=== PATIENT | female | born 1950 | race American Indian/Alaskan Native ===

== ENCOUNTER 2018-01-14 20:34 | Emergency (ER) | payer MEDICARE ==
[2018-01-14 22:45] LABS: Basophils # (Auto) 0.1 K/mm3 (0.0-0.1); Basophils % (Auto) 0.8 % (0.0-1.8); Eosinophils # (Auto) 0.2 K/mm3 (0.0-0.4); Eosinophils % (Auto) 2.3 % (0.0-4.3); Hematocrit 29.7 % (30.3-42.9); Hemoglobin 10.3 gm/dl (10.1-14.3); Lymphocytes # (Auto) 2.1 K/mm3 (1.2-5.4); Lymphocytes % (Auto) 23.2 % (13.4-35.0); Mean Corpuscular HGB Conc 35 % (30-34); Mean Corpuscular Hemoglobin 32 pg (28-32); Mean Corpuscular Volume 93 fl (79-97); Monocytes # (Auto) 0.6 K/mm3 (0.0-0.8); Monocytes % (Auto) 7.2 % (0.0-7.3); Platelet Count 489 K/mm3 (140-440); Red Cell Distribution Width 15.7 % (13.2-15.2)
[2018-01-14 22:58] LABS: BUN/Creatinine Ratio 19; Blood Urea Nitrogen 15 mg/dL (7-17); Calcium 9.5 mg/dL (8.4-10.2); Hemolysis Index 9
--- NOTE | 2018-01-15 | XRay Report ---
FINAL REPORT EXAM: XR CHEST ROUTINE 2V HISTORY: Shortness of breath COMPARISON: None available. FINDINGS:: Frontal and lateral views of the chest obtained. Cardiac silhouette is within normal limits patchy airspace consolidation the medial margin right middle lobe compatible with pneumonia. Remaining loops clear. No pleural effusion or pneumothorax. IMPRESSION:: Right middle lobe pneumonia.
[2018-01-15] MEDS ORDERED: DUONEB *Not for PRN Use IH ONE (01:21)
--- NOTE | 2018-01-15 01:52 | Emergency Department Report ---
ED General Adult HPI - General Chief complaint: Dyspnea/Respdistress Stated complaint: SOB Time Seen by Provider: 01/15/18 01:08 Source: patient Mode of arrival: Ambulatory Limitations: No Limitations - History of Present Illness Initial comments: 67-year-old female with a past medical history of COPD, diabetes, hypertension, elevated cholesterol presents to the hospital complains of feeling like her eyes felt tired earlier. Patient denies pain, blurry vision, headache, or shortness of breath. Patient thought that maybe her sugar was high and she began to feel anxious and worried that something was wrong with her. While waiting to the ER for evaluation r her symptoms have resolved and she feels normal. - Related Data Allergies Allergy/AdvReac Type Severity Reaction Status Date / Time acetaminophen AdvReac Itching Verified 01/14/18 21:52 [From [facility]-[place] Plus Flu/Body] aspirin AdvReac Itching Verified 01/14/18 21:52 [From [facility] Plus Cold/Cough] chlorpheniramine AdvReac Itching Verified 01/14/18 21:52 [From [facility] Plus Cold/Cough] dextromethorphan AdvReac Itching Verified 01/14/18 21:52 [From [facility] Plus Cold/Cough] magnesium salicylate AdvReac Itching Verified 01/14/18 21:52 [From Doans Pills] phenylpropanolamine AdvReac Itching Verified 01/14/18 21:52 [From [place] Plus Cold/Cough] pseudoephedrine AdvReac Itching Verified 01/14/18 21:52 [From [facility] Plus Flu/Body] ED Review of Systems ROS: Stated complaint: SOB Other details as noted in HPI Comment: All other systems reviewed and negative ED Past Medical Hx - Past Medical History Hx Hypertension: Yes Hx Diabetes: Yes Hx Arthritis: Yes Hx COPD: Yes Additional medical history: high cholesterol - Surgical History Past Surgical History?: Yes Additional Surgical History: hernia 1974. breast left - Social History Smoking Status: Current Every Day Smoker Substance Use Type: Alcohol ED Physical Exam - General Limitations: No Limitations - Other Other exam information: General: No limitations, patient is alert in no acute distress Head exam: Atraumatic, normocephalic Eyes exam: Normal appearance, pupils equal reactive to light, extraocular movements intact ENT: Moist mucous membrane, normal oropharynx Neck exam: Normal inspection, full range of motion, no meningismus nontender Respiratory exam: Mild bilateral expiratory wheezes Cardiovascular: Normal rate and rhythm, normal heart sounds Abdomen: Soft, nondistended, and nontender, with normal bowel sounds, no rebound, or guarding Extremity: Full range of motion normal inspection no deformity Back: Normal Inspection, full range of motion, no tenderness Neurologic: Alert, oriented x3, cranial nerves intact, no motor or sensory deficit Psychiatric: normal affect, normal mood Skin: Warm, dry, intact ED Course Vital Signs 01/14/18 01/14/18 01/15/18 21:10 21:40 00:30 Temperature 98.2 F 98.2 F Pulse Rate 107 H 107 H 91 H Pulse Rate [ Posterior Bilateral Throughout] Respiratory 14 29 H Rate Respiratory Rate [Posterior Bilateral Throughout] Blood Pressure 134/64 134/64 O2 Sat by Pulse 87 94 97 Oximetry 01/15/18 01/15/18 01:25 01:38 Temperature Pulse Rate Pulse Rate [ 88 96 H Posterior Bilateral Throughout] Respiratory Rate Respiratory 20 20 Rate [Posterior Bilateral Throughout] Blood Pressure O2 Sat by Pulse Oximetry ED Medical Decision Making - Lab Data Result diagrams: 01/14/18 22:29 01/14/18 22:29 Lab Results 01/14/18 01/14/18 Range/Units 22:29 22:29 WBC 9.0 (4.5-11.0) K/mm3 RBC 3.20 L (3.65-5.03) M/mm3 Hgb 10.3 (10.1-14.3) gm/dl Hct 29.7 L (30.3-42.9) % MCV 93 (79-97) fl MCH 32 (28-32) pg MCHC 35 H (30-34) % RDW 15.7 H (13.2-15.2) % Plt Count 489 H (140-440) K/mm3 Lymph % (Auto) 23.2 (13.4-35.0) % [place] % (Auto) 7.2 (0.0-7.3) % Eos % (Auto) 2.3 (0.0-4.3) % Baso % (Auto) 0.8 (0.0-1.8) % Lymph # 2.1 (1.2-5.4) K/mm3 [place] # 0.6 (0.0-0.8) K/mm3 Eos # 0.2 (0.0-0.4) K/mm3 Baso # 0.1 (0.0-0.1) K/mm3 Seg Neutrophils % 66.5 (40.0-70.0) % Seg Neutrophils # 6.0 (1.8-7.7) K/mm3 Sodium 133 L (137-145) mmol/L Potassium 4.3 (3.6-5.0) mmol/L Chloride 94.8 L (98-107) mmol/L Carbon Dioxide 26 (22-30) mmol/L Anion Gap 17 mmol/L BUN 15 (7-17) mg/dL Creatinine 0.8 (0.7-1.2) mg/dL Estimated GFR > 60 ml/min BUN/Creatinine Ratio 19 % Glucose 164 H (65-100) mg/dL Calcium 9.5 (8.4-10.2) mg/dL Troponin T < 0.010 (0.00-0.029) ng/mL - EKG Data -: EKG Interpreted by Me EKG shows normal: sinus rhythm, axis (qrs 79), QRS complexes (qrsd 85), ST-T waves (no stemi/t inv) Rate: tachycardia (103) - Medical Decision Making Eyes have a tired feeling Resolved complaints of visual abnormalities Pain-free Anxiety Resolved COPD Mild wheezing Patient is not use home O2 Received a DuoNeb in the ED with improvement Labs unremarkable. Corrected sodium for glucose is 134-135 Patient will be discharged home with PMD follow-up - Differential Diagnosis hypoglycemia, anxiety, COPD Critical Care Time: No Critical care attestation.: If time is entered above; I have spent that time in minutes in the direct care of this critically ill patient, excluding procedure time. ED Disposition Clinical Impression: Anxiety, Diabetes, COPD (chronic obstructive pulmonary disease) Disposition: DC-01 TO HOME OR SELFCARE Is pt being admited?: No Does the pt Need Aspirin: No Condition: Stable Instructions: Diabetes Mellitus Type 2 in Adults (ED), Chronic Obstructive Pulmonary Disease (ED), Anxiety (ED) Additional Instructions: Continue your current medication as prescribed. Follow up with your doctor or the doctors provided. Return if symptoms worsen as indicated by your discharge instructions Referrals: your primary care, [Other] - 3-5 Days [facility] [Provider Group] - 3-5 Days REX GILES MD [Staff Physician] - 3-5 Days Time of Disposition: 02:21
[2018-01-15 02:38] VITALS: BP 132/70
== END 2018-01-15 02:38 | disposition home or self-care (01) ==
LOC: ED 20:34
DX: E11.65 Type 2 diabetes mellitus with hyperglycemia (principal); J44.9 Chronic obstructive pulmonary disease, unspecified; F41.9 Anxiety disorder, unspecified; I10 Essential (primary) hypertension; M19.90 Unspecified osteoarthritis, unspecified site; E78.00 Pure hypercholesterolemia, unspecified; F17.200 Nicotine dependence, unspecified, uncomplicated; Z88.8 Allergy status to other drugs, medicaments and biological substances
CPT/HCPCS: 36415; 71046; 80048; 84484; 85025; 93005; 93010; 94640

== ENCOUNTER 2021-10-07 09:17 | Emergency (ER) | payer MEDICARE ==
[2021-10-07] MEDS ORDERED: methylPREDNISolone Sod Succinate 125 MG/2 ML INJ IV ONE (09:34)
[2021-10-07] MEDS ORDERED: ALBUTEROL 2.5 MG/3 ML NEBU IH ONE (09:34)
[2021-10-07] MEDS ORDERED: IPRATROPIUM 0.02% NEBU 2.5 ML IH ONE (09:34)
--- NOTE | 2021-10-07 09:49 | Emergency Department Report ---
ED General Adult HPI - General Chief complaint: Hypoglycemia Stated complaint: LOW BLOOD SUGAR Time Seen by Provider: 10/07/21 09:27 Source: patient, EMS Mode of arrival: Stretcher Limitations: No Limitations - History of Present Illness Initial comments: Patient is 70 years old female with history of diabetes, hypertension and COPD. Patient brought to the emergency room via EMS from home for evaluation of altered mental status and confusion. EMS reported that patient found by her family member at the edge of the bed confused. EMS stated that patient blood glucose was 50. Patient received dextrose 50% and patient started became more alert and oriented. Upon arrival to the ER patient is alert, oriented x3 no acute distress with a GCS of 15. Patient stated that she did not eat a good dinner last night. She stated that she is taking insulin and metformin for her blood sugar. Stroke scale is 0. - Related Data Allergies Allergy/AdvReac Type Severity Reaction Status Date / Time acetaminophen AdvReac Itching Verified 10/07/21 09:25 [From [facility] Plus Flu/Body] aspirin AdvReac Itching Verified 10/07/21 09:25 [From [facility] Plus Cold/Cough] chlorpheniramine AdvReac Itching Verified 10/07/21 09:25 [From [facility] Plus Cold/Cough] dextromethorphan AdvReac Itching Verified 10/07/21 09:25 [From [facility] Plus Cold/Cough] magnesium salicylate AdvReac Itching Verified 10/07/21 09:25 [From Doans Pills] phenylpropanolamine AdvReac Itching Verified 10/07/21 09:25 [From [place] Plus Cold/Cough] pseudoephedrine AdvReac Itching Verified 10/07/21 09:25 [From [place] Plus Flu/Body] ED Review of Systems ROS: Stated complaint: LOW BLOOD SUGAR Other details as noted in HPI Comment: All other systems reviewed and negative Constitutional: denies: chills, fever Respiratory: denies: cough, shortness of breath, SOB with exertion, SOB at rest, stridor, wheezing Cardiovascular: denies: chest pain, palpitations, dyspnea on exertion Gastrointestinal: denies: abdominal pain, nausea, vomiting Musculoskeletal: denies: back pain Neurological: denies: headache, weakness, numbness, paresthesias, confusion ED Past Medical Hx - Past Medical History Hx Hypertension: Yes Hx Diabetes: Yes Hx Arthritis: Yes Hx COPD: Yes Additional medical history: high cholesterol - Surgical History Additional Surgical History: hernia 1974. breast left - Social History Smoking Status: Current Every Day Smoker Substance Use Type: Alcohol ED Physical Exam - General Limitations: No Limitations General appearance: alert, in no apparent distress - Head Head exam: Present: atraumatic, normocephalic, normal inspection - Eye Eye exam: Present: normal appearance - ENT ENT exam: Present: normal exam, normal orophraynx, mucous membranes moist - Neck Neck exam: Present: normal inspection, full ROM. Absent: tenderness, meningismus - Respiratory Respiratory exam: Present: wheezes, accessory muscle use, decreased breath sounds, prolonged expiratory. Absent: respiratory distress, rales, rhonchi - Cardiovascular Cardiovascular Exam: Present: regular rate, normal rhythm, normal heart sounds - GI/Abdominal GI/Abdominal exam: Present: soft, normal bowel sounds. Absent: distended, tenderness, guarding, rebound, rigid, organomegaly, mass, bruit, pulsatile mass, hernia - Extremities Exam Extremities exam: Present: normal inspection, full ROM, normal capillary refill. Absent: tenderness, pedal edema, joint swelling, calf tenderness - Back Exam Back exam: Present: normal inspection, full ROM. Absent: CVA tenderness (R), CVA tenderness (L) - Neurological Exam Neurological exam: Present: alert, oriented X3, CN II-XII intact, normal gait, reflexes normal. Absent: motor sensory deficit - Psychiatric Psychiatric exam: Present: normal mood - Skin Skin exam: Present: warm, intact, normal color ED Course Vital Signs 10/07/21 10/07/21 10/07/21 09:22 09:38 09:41 Temperature 98 F Pulse Rate 82 Pulse Rate [ Bilateral] Respiratory 23 Rate Respiratory Rate [Bilateral ] Blood Pressure Blood Pressure 158/86 [Left] O2 Sat by Pulse 98 92 93 Oximetry 10/07/21 10/07/21 10/07/21 09:45 10:01 10:15 Temperature Pulse Rate 86 85 84 Pulse Rate [ Bilateral] Respiratory 21 21 23 Rate Respiratory Rate [Bilateral ] Blood Pressure Blood Pressure [Left] O2 Sat by Pulse 92 94 95 Oximetry 10/07/21 10/07/21 10/07/21 10:31 10:35 10:45 Temperature Pulse Rate 85 87 Pulse Rate [ 80 Bilateral] Respiratory 23 20 Rate Respiratory 20 Rate [Bilateral ] Blood Pressure Blood Pressure [Left] O2 Sat by Pulse 96 99 Oximetry 10/07/21 10/07/21 10/07/21 11:01 11:15 11:31 Temperature Pulse Rate 84 86 96 H Pulse Rate [ Bilateral] Respiratory 22 18 28 H Rate Respiratory Rate [Bilateral ] Blood Pressure Blood Pressure [Left] O2 Sat by Pulse 99 98 94 Oximetry 10/07/21 10/07/21 10/07/21 11:45 12:01 12:15 Temperature Pulse Rate 90 96 H 99 H Pulse Rate [ Bilateral] Respiratory 17 20 17 Rate Respiratory Rate [Bilateral ] Blood Pressure 140/82 140/82 Blood Pressure [Left] O2 Sat by Pulse 94 92 93 Oximetry 10/07/21 10/07/21 12:31 12:45 Temperature Pulse Rate Pulse Rate [ Bilateral] Respiratory Rate Respiratory Rate [Bilateral ] Blood Pressure 146/92 146/92 Blood Pressure [Left] O2 Sat by Pulse 93 93 Oximetry ED Medical Decision Making - Lab Data Result diagrams: 10/07/21 10:52 10/07/21 10:52 - EKG Data -: EKG Interpreted by Me - Radiology Data Radiology results: report reviewed - Medical Decision Making Patient is 70 years old female with history of diabetes, hypertension and COPD. Patient brought to the emergency room via EMS from home for evaluation of altered mental status and confusion. EMS reported that patient found by her family member at the edge of the bed confused. EMS stated that patient blood glucose was 50. Patient received dextrose 50% and patient started became more alert and oriented. Upon arrival to the ER patient is alert, oriented x3 no acute distress with a GCS of 15. Patient stated that she did not eat a good dinner last night. She stated that she is taking insulin and metformin for her blood sugar. Stroke scale is 0. Patient started on D10 and served a meal tray. Patient remained alert, oriented x3 in no acute distress. Patient also received albuterol Atrovent and Solu- Medrol for wheezing. Chest x-ray showed possible right lower lobe pneumonia. Patient received Levaquin 500 mg. Patient observed in the ER for several hours after discontinuation of D10 with no hypoglycemia. Patient advised to follow-up with her primary care physician in the next 2 to 3 days and to return to the ER if she develop any new symptoms. Critical care attestation.: If time is entered above; I have spent that time in minutes in the direct care of this critically ill patient, excluding procedure time. ED Disposition Clinical Impression: Acute metabolic encephalopathy due to hypoglycemia, COPD exacerbation, Right lower lobe pneumonia Disposition: 01 HOME / SELF CARE / HOMELESS Is pt being admited?: No Condition: Stable Instructions: Chronic Obstructive Pulmonary Disease (ED), Bacterial Pneumonia (ED), Hypoglycemia, Chronic Obstructive Pulmonary Disease Exacerbation, Eas y-to-Read, Community-Acquired Pneumonia, Adult Referrals: PRIMARY CARE, [Primary Care Provider] - 3-5 Days
[2021-10-07] MEDS ORDERED: DEXTROSE 10% IN WATER 1,000 ML IV SCH (10:00)
--- NOTE | 2021-10-07 10:09 | XRay Report ---
CHEST 1 VIEW 10/07/2021 9:46 AM INDICATION / CLINICAL INFORMATION: Altered Mental Status. COMPARISON: 01/04/2018 FINDINGS: SUPPORT DEVICES: None. HEART / MEDIASTINUM: No significant abnormality. LUNGS / PLEURA: Mild streaky left lower lung opacity. No pneumothorax. ADDITIONAL FINDINGS: No significant additional findings. IMPRESSION: 1. Streaky left lower lung opacity, possible atelectasis versus pneumonia. Signer Name: Alce Hays MD Signed: 10/07/2021 10:05 AM Workstation Name: [email or web address]
[2021-10-07 11:29] LABS: Basophils % (Auto) 0.7 % (0.0-1.8); Eosinophils % (Auto) 0.1 % (0.0-4.3); Hematocrit 42.6 % (30.3-42.9); Hemoglobin 14.4 gm/dl (10.1-14.3); Lymphocytes # (Auto) 0.5 K/mm3 (1.2-5.4); Lymphocytes % (Auto) 11.1 % (13.4-35.0); Mean Corpuscular HGB Conc 34 % (30-34); Mean Corpuscular Volume 93 fl (79-97); Monocytes # (Auto) 0.2 K/mm3 (0.0-0.8); Monocytes % (Auto) 5.3 % (0.0-7.3); Red Blood Count 4.56 M/mm3 (3.65-5.03); Red Cell Distribution Width 15.3 % (13.2-15.2)
[2021-10-07 11:32] LABS: INR 0.82 (0.87-1.13)
[2021-10-07 11:33] LABS: Partial Thromboplastin Time 31.5 Sec. (24.2-36.6)
[2021-10-07 12:27] LABS: Alanine Aminotransferase 15 units/L (7-56); Albumin 4.2 g/dL (3.9-5); Blood Urea Nitrogen 6 mg/dL (7-17); Calcium 9.3 mg/dL (8.4-10.2); Hemolysis Index 8
[2021-10-07 12:28] LABS: BUN/Creatinine Ratio 15; Bilirubin,Direct < 0.2 mg/dL (0-0.2)
[2021-10-07 13:34] VITALS: BP 108/61
[2021-10-07 14:15] LABS: Color,Urine Colorless (Yellow)
[2021-10-07 14:17] LABS: Bilirubin,Urine Moderate (Negative)
[2021-10-07 14:18] LABS: Blood,Urine Negative (Negative)
[2021-10-07 14:19] LABS: Protein,Urine <30 mg dL mg/dL (Negative)
[2021-10-07 14:37] LABS: Platelet Count 471 K/mm3 (140-440)
[2021-10-07 14:57] LABS: Mucus,Urine FEW /HPF; RBC,Urine < 1.0 /HPF (0.0-6.0)
[2021-10-07 15:22] LABS: Ictotest,Urine Negative (Negative)
== END 2021-10-07 16:31 | disposition home or self-care (01) ==
LOC: ED 09:17
DX: E11.649 Type 2 diabetes mellitus with hypoglycemia without coma (principal); G93.41 Metabolic encephalopathy; J44.1 Chronic obstructive pulmonary disease with (acute) exacerbation; J18.9 Pneumonia, unspecified organism; I10 Essential (primary) hypertension; E11.9 Type 2 diabetes mellitus without complications; F17.200 Nicotine dependence, unspecified, uncomplicated; F10.20 Alcohol dependence, uncomplicated; Z88.6 Allergy status to analgesic agent; Z88.8 Allergy status to other drugs, medicaments and biological substances
CPT/HCPCS: 71045; 80048; 80076; 81001; 82962; 85025; 85610; 85730; 87076; 87086; 87186; 94640; 96361; 96365; 96375; 99284; J1956; J2930; J3490; 94644

== ENCOUNTER 2021-11-24 05:48 | Observation (INO) | payer MEDICARE ==
--- NOTE | 2021-11-24 06:26 | Emergency Department Report ---
ED General Adult HPI - General Chief complaint: Hypoglycemia Stated complaint: HYPOGLYCEMIA PUI?: No Time Seen by Provider: 11/24/21 06:09 Source: patient, EMS Mode of arrival: Stretcher Limitations: No Limitations - History of Present Illness Initial comments: This is a pleasant 70-year-old female with medical history of diabetes brought in by EMS with concerns of hypoglycemia which according to patient she fell to the floor she had a syncopal episode. Patient states she uses insulin/Lantus for her nighttime patient does not know how much. Patient also said that she used metformin as well. Patient denies any recent change of her medication that she is aware of. Patient denies any other symptoms. Patient denies fever chill night sweat dizziness blurred vision headache tinnitus ear pain runny nose sore throat loss of taste or smell chest pain palpitation short of breath cough abdominal pain nausea vomiting diarrhea constipation joint pain muscle pain new rash and heat or cold intolerance. - Related Data Previous Rx's Medication Instructions Recorded Last Taken Type Prednisone [predniSONE 10 mg 10 mg PO .TAPER #1 tab.ds.pk 10/07/21 Unknown Rx (6-Day Pack, 21 Tabs)] levoFLOXacin [Levaquin TAB] 500 mg PO QDAY #7 tablet 10/07/21 Unknown Rx Allergies Allergy/AdvReac Type Severity Reaction Status Date / Time acetaminophen AdvReac Itching Verified 10/07/21 09:25 [From [facility]eness[facility]-[place] Plus Flu/Body] aspirin AdvReac Itching Verified 10/07/21 09:25 [From [facility]-[place] Plus Cold/Cough] chlorpheniramine AdvReac Itching Verified 10/07/21 09:25 [From [facility]-[place] Plus Cold/Cough] dextromethorphan AdvReac Itching Verified 10/07/21 09:25 [From Venessa-[place] Plus Cold/Cough] magnesium salicylate AdvReac Itching Verified 10/07/21 09:25 [From Doans Pills] phenylpropanolamine AdvReac Itching Verified 10/07/21 09:25 [From [facility]enessa-[place] Plus Cold/Cough] pseudoephedrine AdvReac Itching Verified 10/07/21 09:25 [From Veness[facility]-[place] Plus Flu/Body] ED Review of Systems ROS: Stated complaint: HYPOGLYCEMIA Other details as noted in HPI Comment: All other systems reviewed and negative Constitutional: no symptoms reported, see HPI Eyes: as per HPI ENT: as per HPI Respiratory: no symptoms reported, see HPI Cardiovascular: as per HPI Endocrine: no symptoms reported, see HPI Gastrointestinal: as per HPI Musculoskeletal: as per HPI Skin: as per HPI Neurological: as per HPI Psychiatric: as per HPI Hematological/Lymphatic: as per HPI ED Past Medical Hx - Past Medical History Previous Medical History?: Yes Hx Hypertension: Yes Hx Diabetes: Yes Hx Arthritis: Yes Hx COPD: Yes Additional medical history: high cholesterol - Surgical History Additional Surgical History: hernia 1974. breast left - Social History Smoking Status: Current Every Day Smoker Substance Use Type: Alcohol - Medications Home Medications: Home Medications Medication Instructions Recorded Confirmed Last Taken Type Prednisone [predniSONE 10 mg 10 mg PO .TAPER #1 tab.ds.pk 10/07/21 Unknown Rx (6-Day Pack, 21 Tabs)] levoFLOXacin [Levaquin TAB] 500 mg PO QDAY #7 tablet 10/07/21 Unknown Rx ED Physical Exam - General Limitations: No Limitations General appearance: alert, in no apparent distress - Head Head exam: Present: atraumatic, normocephalic, normal inspection - Eye Eye exam: Present: normal appearance, PERRL, EOMI Pupils: Present: normal accommodation - ENT ENT exam: Present: normal exam, mucous membranes moist - Neck Neck exam: Present: normal inspection, full ROM - Respiratory Respiratory exam: Present: normal lung sounds bilaterally - Cardiovascular Cardiovascular Exam: Present: regular rate, normal rhythm, normal heart sounds - GI/Abdominal GI/Abdominal exam: Present: soft - Extremities Exam Extremities exam: Present: normal inspection, full ROM, normal capillary refill - Back Exam Back exam: Present: normal inspection, full ROM - Neurological Exam Neurological exam: Present: alert, oriented X3, CN II-XII intact, normal gait - Psychiatric Psychiatric exam: Present: normal affect, normal mood - Skin Skin exam: Present: normal color ED Course Vital Signs 11/24/21 06:27 O2 Sat by Pulse 95 Oximetry - Consultations Consultation #1: 11/24/21 08:19 PATIENT STARTING ON D10 GLUCOSE STILL DOWN TRENDING. SPOKE TO HOSPITALIST WHO KINDLY ACCEPTED THE PATIENT FOR HYPOGLYCEMIA. ED Medical Decision Making - Lab Data Result diagrams: 11/24/21 06:50 11/24/21 06:50 Critical care attestation.: If time is entered above; I have spent that time in minutes in the direct care of this critically ill patient, excluding procedure time. ED Disposition Clinical Impression: Hypoglycemia due to insulin Disposition: ADMITTED INPATIENT Is pt being admited?: Yes Does the pt Need Aspirin: No Condition: Stable Referrals: PRIMARY CARE, [Primary Care Provider] - 3-5 Days Time of Disposition: 08:20
--- NOTE | 2021-11-24 06:49 | Cat Scan Report ---
CT HEAD WITHOUT CONTRAST INDICATION / CLINICAL INFORMATION: syncopal episode. TECHNIQUE: CT head was performed without administration of intravenous contrast. All CT scans at this location are performed using CT dose reduction for ALARA by means of automated exposure control. COMPARISON: None available. FINDINGS: CEREBRAL HEMISPHERES: Generalized atrophy and bilateral regions of periventricular white matter hypoa ttenuation compatible with microvascular ischemia are demonstrated. No midline shift. Basal cisterns patent. HEMORRHAGE: None. CEREBELLUM / BRAINSTEM: No significant abnormality. ORBITS: No significant abnormality. Bilateral cataract surgery suggested. SOFT TISSUES: No significant abnormality. SKULL: No significant abnormality. PARANASAL SINUSES / MASTOID AIR CELLS: Minimal fluid within the right maxillary sinus. ADDITIONAL FINDINGS: None. IMPRESSION: 1. No acute intracranial abnormality. 2. Minimal fluid right maxillary sinus. Signer Name: Cooper De Jesus II, MD Signed: 11/24/2021 6:44 AM Workstation Name: [id number]
--- NOTE | 2021-11-24 07:05 | XRay Report ---
CHEST 1 VIEW INDICATION / CLINICAL INFORMATION: syncopal epsidpe. COMPARISON: None available. FINDINGS: SUPPORT DEVICES: None. HEART / MEDIASTINUM: Heart size is within normal limits. Mediastinal contour demonstrates no signific ant abnormality. LUNGS / PLEURA: Lungs are clear for degree of inspiration and technique utilized. BONES: No significant osseous abnormality. ADDITIONAL FINDINGS: No significant additional findings. IMPRESSION: 1. No active cardiopulmonary disease. Signer Name: Cooper De Jesus II, MD Signed: 11/24/2021 7:00 AM Workstation Name: [id number]
[2021-11-24 07:28] LABS: Hematocrit 44.1 % (30.3-42.9); Hemoglobin 14.8 gm/dl (10.1-14.3); Mean Corpuscular HGB Conc 34 % (30-34); Mean Corpuscular Volume 94 fl (79-97); Platelet Count 488 K/mm3 (140-440); Red Blood Count 4.67 M/mm3 (3.65-5.03); Red Cell Distribution Width 15.5 % (13.2-15.2)
[2021-11-24 07:51] LABS: Alanine Aminotransferase 18 units/L (7-56); Albumin 4.1 g/dL (3.9-5); Blood Urea Nitrogen 6 mg/dL (7-17); Calcium 9.4 mg/dL (8.4-10.2); Hemolysis Index 13
[2021-11-24 07:58] LABS: WBC,Urine < 1.0 /HPF (0.0-6.0)
[2021-11-24 08:03] LABS: Bilirubin,Urine Negative (Negative); Blood,Urine Negative (Negative); Color,Urine Straw (Yellow)
[2021-11-24 08:04] LABS: Protein,Urine <30 mg dL mg/dL (Negative); Urobilinogen,Urine < 2.0 mg/dL (<2.0)
[2021-11-24 08:04] LABS: BUN/Creatinine Ratio 15
[2021-11-24] MEDS ORDERED: MORPHINE 4 MG/1 ML INJ IV PRN (09:59)
[2021-11-24] MEDS ORDERED: ENOXAPARIN 30 MG/0.3 ML INJ SUB-Q SCH (10:00)
[2021-11-24] MEDS ORDERED: KETOROLAC 10 MG TAB PO PRN (10:03)
[2021-11-24] MEDS ORDERED: ONDANSETRON 4 MG/2 ML INJ IV PRN (10:30)
--- NOTE | 2021-11-24 10:57 | Electrocardiograph Report ---
[facility] Test Date: 2021-11-24 Test Time: 07:37:18 Pat Name: MEME KRAUSE Department: Room: Gender: F Single Needle Operator: MAURI : 1950 Requested By: DANI PARSONS Order Number: [id number] Reading MD: Abdirahman Benedict Measurements Intervals [place] Rate: 86 P: 43 NH: 149 QRS: 98 QRSD: 92 T: 42 QT: 390 QTc: 467 Interpretive Statements Sinus rhythm Right axis deviation No previous ECG available for comparison Electronically Signed On 11-24-2021 10:56:49 EDT by Abdirahman Benedict
[2021-11-24] MEDS ORDERED: MAGNESIUM SULFATE 1 GM in SODIUM CHLORIDE 0.9% 50 ML IV ONE (11:00)
[2021-11-24] MEDS ORDERED: MORPHINE 2 MG/1 ML INJ IV PRN (11:00)
[2021-11-24] MEDS ORDERED: traMADol 50 MG TAB PO PRN (11:00)
[2021-11-24] MEDS: ENOXAPARIN 40 MG/0.4 ML INJ SUB-Q SCH (12:41)
[2021-11-24] MEDS: DEXTROSE 10% IN WATER 1,000 ML IV SCH ×2 (12:47→22:01)
--- NOTE | 2021-11-24 16:04 | History and Physical Report ---
History of Present Illness Date of examination: 11/24/21 Date of admission: 11/24/21 09:59 Chief complaint: Acute metabolic encephalopathy 2/2 hypoglycemia History of present illness: Patient is a 70-year-old female past medical history of insulin-dependent type 2 diabetes mellitus, COPD, and obesity who presented to the ED after being found confused and relatively nonresponsive at home by her . Further investigation revealed that the patient was last seen normal shortly after eating dinner and taking insulin (Lantusdose unknown) at home prior to going to bed, yet after eating dinner. EMS was called and discovered that the patient's blood glucose was in the 20s requiring D50 administration. On arrival to the ED, patient was still found to be hypoglycemic (49) and D10 drip was initiated. Patient underwent CT head noncontrast for working up acute metabolic encephalopathy that was found to be unremarkable. Patient's blood sugar improved to 135; the patient required hospitalization for further management of hypoglycemia in the setting of over ministration of Lantus. Past History Past Medical History: diabetes, hypertension Past Surgical History: hernia repair Social history: , smoking, full code Family history: diabetes Medications and Allergies Allergies Allergy/AdvReac Type Severity Reaction Status Date / Time acetaminophen AdvReac Itching Verified 10/07/21 09:25 [From [facility] [facility] Flu/Body] aspirin AdvReac Itching Verified 10/07/21 09:25 [From [facility] [facility] Cold/Cough] chlorpheniramine AdvReac Itching Verified 10/07/21 09:25 [From [facility] [facility] Cold/Cough] dextromethorphan AdvReac Itching Verified 10/07/21 09:25 [From [facility] [facility] Cold/Cough] magnesium salicylate AdvReac Itching Verified 10/07/21 09:25 [From [facility]] phenylpropanolamine AdvReac Itching Verified 10/07/21 09:25 [From [facility] [facility] Cold/Cough] pseudoephedrine AdvReac Itching Verified 10/07/21 09:25 [From [facility] [facility] Flu/Body] Home Medications Medication Instructions Recorded Confirmed Last Taken Type Budesonide/Formoterol Fumarate 2 puff PO BID 11/24/21 11/24/21 Unknown History [Symbicort 160-4.5 Mcg Inhaler] Insulin Glargine,Hum.rec.anlog 20 unit SQ HS 11/24/21 11/24/21 Unknown History [Lantus Solostar] Losartan [Cozaar] 50 mg PO QDAY 11/24/21 11/24/21 Unknown History Simvastatin 5 mg PO QDAY 11/24/21 11/24/21 Unknown History amLODIPine [Norvasc] 10 mg PO DAILY 11/24/21 11/24/21 Unknown History metFORMIN [Glucophage] 500 mg PO QDAY 11/24/21 11/24/21 Unknown History Active Meds: Active Medications Enoxaparin Sodium (Enoxaparin 40 Mg/0.4 Ml Inj) 40 mg SUB-Q QDAY@1000 [facility] Last Admin: 11/24/21 12:41 Dose: 40 mg Dextrose (D10w) 1,000 mls @ 100 mls/hr IV DIRECT [facility] Last Admin: 11/24/21 12:47 Dose: 100 mls/hr Ketorolac Tromethamine (Ketorolac 10 Mg Tab) 10 mg PO Q6HR PRN PRN Reason: Pain, Moderate (4-6) Stop: 11/29/21 10:02 Morphine Sulfate (Morphine 2 Mg/1 Ml Inj) 2 mg IV Q4H PRN PRN Reason: Pain , Severe (7-10) Ondansetron HCl (Ondansetron 4 Mg/2 Ml Inj) 4 mg IV Q8H PRN PRN Reason: Nausea And Vomiting Sodium Chloride (Sodium Chloride 0.9% 10 Ml Flush Syringe) 10 ml IV BID [facility] Last Admin: 11/24/21 11:08 Dose: 10 ml Sodium Chloride (Sodium Chloride 0.9% 10 Ml Flush Syringe) 10 ml IV PRN PRN PRN Reason: LINE FLUSH Tramadol HCl (Tramadol 50 Mg Tab) 50 mg PO Q8H PRN PRN Reason: Pain, Mild (1-3) Review of Systems All systems: negative Constitutional: weakness Neurological: confusion Exam - Constitutional Vitals: Temp Pulse Resp BP Pulse Ox 89 18 147/64 90 11/24/21 13:01 11/24/21 13:01 11/24/21 13:01 11/24/21 13:01 General appearance: Present: no acute distress, well-nourished, obese - EENT Eyes: Present: PERRL, EOM intact ENT: hearing intact, clear oral mucosa, dentition normal - Neck Neck: Present: supple, normal ROM - Respiratory Respiratory effort: normal Respiratory: bilateral: CTA - Cardiovascular Rhythm: regular Heart Sounds: Present: S1 & S2 - Extremities Extremities: no ischemia, pulses intact, pulses symmetrical, No edema, normal temperature, normal color Peripheral Pulses: within normal limits - Abdominal General gastrointestinal: Present: soft, non-tender, non-distended, normal bowel sounds Female genitourinary: Present: deferred - Rectal Rectal Exam: deferred - Integumentary Integumentary: Present: clear, warm, dry - Musculoskeletal Musculoskeletal: strength equal bilaterally - Psychiatric Psychiatric: appropriate mood/affect, intact judgment & insight, memory intact, cooperative - Neurologic Neurologic: CNII-XII intact, moves all extremities - Allied Health Allied health notes reviewed: nursing Results - Labs CBC & Chem 7: 11/24/21 06:50 11/24/21 06:50 Labs: Laboratory Last Values WBC 5.0 K/mm3 (4.5-11.0) 11/24/21 06:50 RBC 4.67 M/mm3 (3.65-5.03) 11/24/21 06:50 Hgb 14.8 gm/dl (10.1-14.3) H 11/24/21 06:50 Hct 44.1 % (30.3-42.9) H 11/24/21 06:50 MCV 94 fl (79-97) 11/24/21 06:50 MCH 32 pg (28-32) 11/24/21 06:50 MCHC 34 % (30-34) 11/24/21 06:50 RDW 15.5 % (13.2-15.2) H 11/24/21 06:50 Plt Count 488 K/mm3 (140-440) H 11/24/21 06:50 Sodium 130 mmol/L (137-145) L 11/24/21 06:50 Potassium 3.7 mmol/L (3.6-5.0) 11/24/21 06:50 Chloride 92.6 mmol/L (98-107) L 11/24/21 06:50 Carbon Dioxide 26 mmol/L (22-30) 11/24/21 06:50 Anion Gap 15 mmol/L 11/24/21 06:50 BUN 6 mg/dL (7-17) L 11/24/21 06:50 Creatinine 0.4 mg/dL (0.6-1.2) L 11/24/21 06:50 Estimated GFR > 60 ml/min 11/24/21 06:50 BUN/Creatinine Ratio 15 % 11/24/21 06:50 Glucose 80 mg/dL (65-100) 11/24/21 06:50 POC Glucose 49 mg/dL (70-105) L 11/24/21 12:45 Calcium 9.4 mg/dL (8.4-10.2) 11/24/21 06:50 Magnesium 1.60 mg/dL (1.7-2.3) L 11/24/21 06:50 Total Bilirubin 0.20 mg/dL (0.1-1.2) 11/24/21 06:50 AST 21 units/L (5-40) 11/24/21 06:50 ALT 18 units/L (7-56) 11/24/21 06:50 Alkaline Phosphatase 110 units/L (35-129) 11/24/21 06:50 Total Protein 7.8 g/dL (6.3-8.2) 11/24/21 06:50 Albumin 4.1 g/dL (3.9-5) 11/24/21 06:50 Albumin/Globulin Ratio 1.1 % 11/24/21 06:50 Urine Color Straw (Yellow) 11/24/21 07:27 Urine Turbidity Clear (Clear) 11/24/21 07:27 Urine pH 7.0 (5.0-7.0) 11/24/21 07:27 Ur Specific [place] 1.005 (1.003-1.030) 11/24/21 07:27 Urine Protein <30 mg dl mg/dL (Negative) 11/24/21 07:27 Urine Glucose (UA) Negative mg/dL (Negative) 11/24/21 07:27 Urine Ketones Negative mg/dL (Negative) 11/24/21 07:27 Urine Blood Negative (Negative) 11/24/21 07:27 Urine Nitrite Negative (Negative) 11/24/21 07:27 Ur Reducing Substances Not Reportable 11/24/21 07:27 Urine Bilirubin Negative (Negative) 11/24/21 07:27 Urine Ictotest Not Reportable 11/24/21 07:27 Urine Urobilinogen < 2.0 mg/dL (<2.0) 11/24/21 07:27 Ur Leukocyte Esterase Negative (Negative) 11/24/21 07:27 Urine WBC (Auto) < 1.0 /HPF (0.0-6.0) 11/24/21 07:27 Urine RBC (Auto) 1.0 /HPF (0.0-6.0) 11/24/21 07:27 U Epithel Cells (Auto) 4.0 /HPF (0-13.0) 11/24/21 07:27 Assessment and Plan Assessment and plan: #Insulin dependent type II diabetes mellitus #Hypoglycemia secondary to insulin administration #Acute metabolic encephalopathy Vzuyt-ga-itsx glucose on admission in the 20s. Unremarkable CT head noncontrast. Status post D50 x1 and started on D10 insulin drip Holding on all glycemic controlling medications. Increasing insulin drip for rate. Trending ycnok-qo-tnqj glucoses every hour. Encouraging p.o. intake. Patient unable to provide Lantus dosage; however, endorses previous episode of hypoglycemia within the last 6 months. Will likely discharge on only oral glycemic's. Pending hemoglobin A1c. Continue to monitor #Hypomagnesemia Magnesium 1.6 Repleted. Continue to monitor. #History of COPD Continue DuoNebs every 6 hours and albuterol nebs every 6 hours as needed #Advanced care planning -Disease education conducted, care plan discussed, diagnoses discussed, prognosis discussed, and patient acknowledges understanding with care plan -Time: +30 min Social: Attempted to contact patient's (Nba Kaufman [phone]) but unable to reach him. Additional salesperson pets and pet supplies is the patient's sister (Tasha Cantrell [phone]). Advance Directives: No VTE prophylaxis?: Chemical Plan of care discussed with patient/family: Yes
[2021-11-24] MEDS ORDERED: GLUCAGON (HUMAN RECOMBINANT) 1 MG/ML INJ IV ONE ×4 (16:20→19:00)
[2021-11-24] MEDS: NICOTINE 14 MG/24 HR PATCH TD SCH (18:25)
[2021-11-25] MEDS ORDERED: D5W/0.45% NACL 1,000 ML IV SCH ×2 (05:00→12:00)
[2021-11-25 05:41] LABS: Blood Urea Nitrogen 5 mg/dL (7-17); Calcium 8.9 mg/dL (8.4-10.2); Hemolysis Index 3
[2021-11-25 05:57] LABS: BUN/Creatinine Ratio 13
[2021-11-25] MEDS: NICOTINE 14 MG/24 HR PATCH TD SCH ×2 (08:35→13:29)
[2021-11-25] MEDS: ENOXAPARIN 40 MG/0.4 ML INJ SUB-Q SCH ×2 (08:36→11:06)
--- NOTE | 2021-11-25 09:45 | Progress Note ---
Assessment and Plan Assessment and plan: #Insulin dependent type II diabetes mellitus #Hypoglycemia secondary to insulin administration Insulin held, closely monitor blood sugars #Acute metabolic encephalopathy/resolved Aignu-or-uvyu glucose on admission in the 20s. Unremarkable CT head noncontrast. Status post D50 x1 and started on D10 insulin drip Holding on all glycemic controlling medications. Increasing insulin drip for rate. Trending jilok-lw-aexu glucoses every hour. Encouraging p.o. intake. Patient unable to provide Lantus dosage; however, endorses previous episode of hypoglycemia within the last 6 months. Will likely discharge on only oral glycemic's. Pending hemoglobin A1c. Continue to monitor #Hypomagnesemia Magnesium 1.6 Repleted. Continue to monitor. #Hyponatremia ; DC half-normal saline Given normal saline Closely monitor electrolytes #history of COPD Continue DuoNebs every 6 hours and albuterol nebs every 6 hours as needed #Advanced care planning -Disease education conducted, care plan discussed, diagnoses discussed, prognosis discussed, and patient acknowledges understanding with care plan -Time: +30 min Social: Attempted to contact patient's (Nba Kaufman [phone]) but unable to reach him. Additional veterans contact representative is the patient's sister (Tasha Cantrell [phone]). Advance Directives: No VTE prophylaxis?: Chemical Plan of care discussed with patient/family: Yes 11/25/2021; Patient's sodium is less than 130 Change D5 normal saline to normal saline IV fluids Closely monitor electrolytes Possible discharge home tomorrow if stable Possible discharge home tomorrow History Interval history: I have seen and examined the patient at the bedside Patient's chart and medications reviewed Patient feels better blood sugars are reasonable level Mild hyponatremia vital signs noted Hospitalist Physical - Constitutional Vitals: Temp Pulse Resp BP Pulse Ox 97 F L 101 H 20 119/67 95 11/25/21 08:57 11/25/21 08:57 11/25/21 08:57 11/25/21 08:57 11/25/21 08:57 General appearance: Present: no acute distress, well-nourished, obese - EENT Eyes: Present: PERRL, EOM intact - Neck Neck: Present: supple, normal ROM - Respiratory Respiratory effort: normal Respiratory: bilateral: diminished, negative: rales, rhonchi, wheezing - Cardiovascular Rhythm: regular Heart Sounds: Present: S1 & S2 - Extremities Extremities: no ischemia, No edema - Abdominal General gastrointestinal: soft, non-tender, non-distended - Integumentary Integumentary: Present: clear, warm - Psychiatric Psychiatric: appropriate mood/affect, cooperative - Neurologic Neurologic: moves all extremities Results - Labs CBC & Chem 7: 11/24/21 06:50 11/25/21 04:26 Labs: Laboratory Last Values WBC 5.0 K/mm3 (4.5-11.0) 11/24/21 06:50 RBC 4.67 M/mm3 (3.65-5.03) 11/24/21 06:50 Hgb 14.8 gm/dl (10.1-14.3) H 11/24/21 06:50 Hct 44.1 % (30.3-42.9) H 11/24/21 06:50 MCV 94 fl (79-97) 11/24/21 06:50 MCH 32 pg (28-32) 11/24/21 06:50 MCHC 34 % (30-34) 11/24/21 06:50 RDW 15.5 % (13.2-15.2) H 11/24/21 06:50 Plt Count 488 K/mm3 (140-440) H 11/24/21 06:50 Sodium 129 mmol/L (137-145) L 11/25/21 04:26 Potassium 3.7 mmol/L (3.6-5.0) 11/25/21 04:26 Chloride 91.5 mmol/L (98-107) L 11/25/21 04:26 Carbon Dioxide 26 mmol/L (22-30) 11/25/21 04:26 Anion Gap 15 mmol/L 11/25/21 04:26 BUN 5 mg/dL (7-17) L 11/25/21 04:26 Creatinine 0.4 mg/dL (0.6-1.2) L 11/25/21 04:26 Estimated GFR > 60 ml/min 11/25/21 04:26 BUN/Creatinine Ratio 13 % 11/25/21 04:26 Glucose 243 mg/dL (65-100) H 11/25/21 04:26 POC Glucose 212 mg/dL (70-105) H 11/25/21 07:35 Calcium 8.9 mg/dL (8.4-10.2) 11/25/21 04:26 Magnesium 1.60 mg/dL (1.7-2.3) L 11/25/21 04:26 Total Bilirubin 0.20 mg/dL (0.1-1.2) 11/24/21 06:50 AST 21 units/L (5-40) 11/24/21 06:50 ALT 18 units/L (7-56) 11/24/21 06:50 Alkaline Phosphatase 110 units/L (35-129) 11/24/21 06:50 Total Protein 7.8 g/dL (6.3-8.2) 11/24/21 06:50 Albumin 4.1 g/dL (3.9-5) 11/24/21 06:50 Albumin/Globulin Ratio 1.1 % 11/24/21 06:50 Urine Color Straw (Yellow) 11/24/21 07:27 Urine Turbidity Clear (Clear) 11/24/21 07:27 Urine pH 7.0 (5.0-7.0) 11/24/21 07:27 Ur Specific [place] 1.005 (1.003-1.030) 11/24/21 07:27 Urine Protein <30 mg dl mg/dL (Negative) 11/24/21 07:27 Urine Glucose (UA) Negative mg/dL (Negative) 11/24/21 07:27 Urine Ketones Negative mg/dL (Negative) 11/24/21 07: Urine Blood Negative (Negative) 11/24/21 07: Urine Nitrite Negative (Negative) 11/24/21 07:27 Ur Reducing Substances Not Reportable 11/24/21 07:27 Urine Bilirubin Negative (Negative) 11/24/21 07:27 Urine Ictotest Not Reportable 11/24/21 07: Urine Urobilinogen < 2.0 mg/dL (<2.0) 11/24/21 07:27 Ur Leukocyte Esterase Negative (Negative) 11/24/21 07: Urine WBC (Auto) < 1.0 /HPF (0.0-6.0) 11/24/21 07:27 Urine RBC (Auto) 1.0 /HPF (0.0-6.0) 11/24/21 07:27 U Epithel Cells (Auto) 4.0 /HPF (0-13.0) 11/24/21 07:27 Active Medications - Current Medications Current Medications: Generic Name Dose Route Start Last Admin Trade Name Freq PRN Reason Stop Dose Admin Enoxaparin Sodium 40 mg 11/24/21 11:00 11/25/21 08:36 Enoxaparin 40 Mg/0.4 Ml Inj SUB-Q 40 mg QDAY@1000 [facility] Administration Dextrose/Sodium Chloride 1,000 mls @ 100 mls/hr 11/25/21 05:00 11/25/21 04:14 D5/0.45ns IV 100 mls/hr DIRECT [facility] Administration Magnesium Sulfate 2 gm in 50 mls @ 25 mls/hr 11/25/21 09:43 Magnesium Sulfate 2gm/50ml IV 11/25/21 11:42 ONCE ONE Ketorolac Tromethamine 10 mg 11/24/21 10:03 Ketorolac 10 Mg Tab PO 11/29/21 10:02 Q6HR PRN Pain, Moderate (4-6) Morphine Sulfate 2 mg 11/24/21 11:00 Morphine 2 Mg/1 Ml Inj IV Q4H PRN Pain , Severe (7-10) Nicotine 14 mg 11/24/21 17:00 11/25/21 08:35 Nicotine 14 Mg/24 Hr Patch TD 14 mg QDAY [facility] Administration Ondansetron HCl 4 mg 11/24/21 10:30 Ondansetron 4 Mg/2 Ml Inj IV Q8H PRN Nausea And Vomiting Sodium Chloride 10 ml 11/24/21 10:00 11/24/21 21:52 Sodium Chloride 0.9% 10 Ml Flush Syringe IV 10 ml BID [facility] Administration Sodium Chloride 10 ml 11/24/21 11:00 Sodium Chloride 0.9% 10 Ml Flush Syringe IV PRN PRN LINE FLUSH Tramadol HCl 50 mg 11/24/21 11:00 Tramadol 50 Mg Tab PO Q8H PRN Pain, Mild (1-3)
[2021-11-25] MEDS ORDERED: MAGNESIUM SULFATE 2 GM/50 ML BAG IV ONE ×2 (11:00→11:05)
[2021-11-25] MEDS: INSULIN LISPRO 100 UNIT/ML SUB-Q SCH ×3 (11:30→21:49)
--- NOTE | 2021-11-25 16:28 | Discharge Summary ---
Providers - Providers Date of Admission: 11/24/21 09:59 Date of discharge: 11/25/21 Attending physician: KARISSA YBARRA Primary care physician: [employer] Hospitalization Condition: Stable Hospital course: #Insulin dependent type II diabetes mellitus #Hypoglycemia secondary to insulin administration #Acute metabolic encephalopathy Oghvo-gc-anpv glucose on admission in the 20s. Unremarkable CT head noncontrast. Status post D50 x1 and started on D10 insulin drip Holding on all glycemic controlling medications. Increasing insulin drip for rate. Trending mwsjm-jo-ohjs glucoses every hour. Encouraging p.o. intake. Patient unable to provide Lantus dosage; however, endorses previous episode of hypoglycemia within the last 6 months. Will likely discharge on only oral glycemic's. Pending hemoglobin A1c. Continue to monitor #Hypomagnesemia Magnesium 1.6 Repleted. Continue to monitor. #History of COPD Continue DuoNebs every 6 hours and albuterol nebs every 6 hours as needed #Advanced care planning -Disease education conducted, care plan discussed, diagnoses discussed, prognosis discussed, and patient acknowledges understanding with care plan -Time: +30 min Disposition: HOME / SELF CARE / HOMELESS Final Discharge Diagnosis (Prints w/discharge instructions): Hypoglycemia present on admission; resolved[insulin and diabetes medications held]. Type 2 diabetes mellitus. Acute metabolic encephalopathy improved. Hypomagnesemia replenished. History of COPD stable. Hyponatremia; mild improvement Time spent for discharge: 35 minutes Core Measure Documentation - Palliative Care Palliative Care/ Comfort Measures: Not Applicable - Core Measures Any of the following diagnoses?: none Exam - Constitutional Vitals: Temp Pulse Resp BP Pulse Ox 97 F L 101 H 20 119/67 95 11/25/21 08:57 11/25/21 08:57 11/25/21 08:57 11/25/21 08:57 11/25/21 08:57 General appearance: Present: no acute distress, well-nourished - EENT Eyes: Present: PERRL, EOM intact - Neck Neck: Present: supple, normal ROM - Respiratory Respiratory effort: normal Respiratory: bilateral: diminished, negative: rales, rhonchi, wheezing - Cardiovascular Rhythm: regular Heart Sounds: Present: S1 & S2 - Extremities Extremities: no ischemia, No edema - Abdominal General gastrointestinal: Present: soft, non-tender, non-distended, normal bowel sounds - Integumentary Integumentary: Present: clear, warm - Musculoskeletal Musculoskeletal: strength equal bilaterally, generalized weakness - Psychiatric Psychiatric: appropriate mood/affect - Neurologic Neurologic: moves all extremities Plan Activity: advance as tolerated, fall precautions Diet: diabetic Additional Instructions: Hold insulin, patient had severe hypoglycemia, do not start insulin till she sees her primary care physician in 3 to 5 days. Check your sodium, potassium and magnesium at PMDs office in 3 to 5 days. Fall precautions Follow up with: PRIMARY CARE, [Primary Care Provider] - 3-5 Days Prescriptions: RX: Nicotine [Habitrol] 14 mg TD QDAY #30 patch RX: Sodium Chloride 1 gm PO BID #6 tablet RX: Ketorolac [Toradol] 10 mg PO Q6HR PRN #20 tablet PRN Reason: Pain, Moderate (4-6)
[2021-11-25] MEDS ORDERED: SODIUM CHLORIDE 0.9% 1000 ML 1,000 ML IV SCH (20:00)
[2021-11-25] MEDS: SODIUM CHLORIDE 1 GM TAB PO SCH (21:41)
[2021-11-25] MEDS ORDERED: guaiFENesin DM 200/20 MG ORAL LIQD 10 ML PO PRN (23:52)
[2021-11-26] MEDS ORDERED: BENZONATATE 100 MG CAP PO PRN (00:22)
[2021-11-26 04:48] VITALS: BP 134/71
[2021-11-26 07:15] LABS: Blood Urea Nitrogen 5 mg/dL (7-17); Calcium 8.8 mg/dL (8.4-10.2); Hemolysis Index 1
[2021-11-26 07:22] LABS: BUN/Creatinine Ratio 17
[2021-11-26] MEDS: INSULIN LISPRO 100 UNIT/ML SUB-Q SCH (08:48)
[2021-11-26] MEDS ORDERED: FUROSEMIDE 40 MG/4 ML INJ IV SCH (09:00)
[2021-11-26] MEDS: ENOXAPARIN 40 MG/0.4 ML INJ SUB-Q SCH (09:02)
[2021-11-26] MEDS: NICOTINE 14 MG/24 HR PATCH TD SCH (09:03)
[2021-11-26] MEDS: SODIUM CHLORIDE 1 GM TAB PO SCH (11:14)
== END 2021-11-26 11:30 | disposition home or self-care (01) ==
LOC: ED 05:48 → INTOOBSV 09:59 → 3A 09:59
PROVIDERS: ADMIT Student in an Organized Health Care Education/Training Program; ATTEND Internal Medicine
DX: E11.649 Type 2 diabetes mellitus with hypoglycemia without coma (principal); G93.41 Metabolic encephalopathy; E83.42 Hypomagnesemia; E87.1 Hypo-osmolality and hyponatremia; I10 Essential (primary) hypertension; J44.9 Chronic obstructive pulmonary disease, unspecified; M19.90 Unspecified osteoarthritis, unspecified site; E78.00 Pure hypercholesterolemia, unspecified; F17.200 Nicotine dependence, unspecified, uncomplicated; Z79.899 Other long term (current) drug therapy; Z79.4 Long term (current) use of insulin; Z98.890 Other specified postprocedural states; Z79.84 Long term (current) use of oral hypoglycemic drugs
CPT/HCPCS: 36415; 70450; 71045; 80048; 80053; 81001; 82962; 83735; 85027; 93005; 96361; 96365; 96366; 96372; 96375; 99285; G0378; J1610; J1650; J1940; J3475; J3490; J7030; J7070; Q9967; J1815

== ENCOUNTER 2021-12-19 11:31 | Emergency (ER) | payer MEDICARE ==
--- NOTE | 2021-12-19 13:31 | XRay Report ---
XR chest routine 2V INDICATION / CLINICAL INFORMATION: ABIDA. COMPARISON: 11/24/2021 FINDINGS: SUPPORT DEVICES: None. HEART /PULMONARY VASCULATURE: No significant abnormality. LUNGS / PLEURA: No acute pulmonary or pleural abnormality. No pneumothorax. ADDITIONAL FINDINGS: No significant additional findings. IMPRESSION: 1. No acute findings. Signer Name: Kory Mijares MD Signed: 12/19/2021 1:26 PM Workstation Name: [id number]
[2021-12-19 14:26] LABS: Basophils # (Auto) 0.1 K/mm3 (0.0-0.1); Basophils % (Auto) 1.4 % (0.0-1.8); Eosinophils % (Auto) 0.6 % (0.0-4.3); Hematocrit 39.7 % (30.3-42.9); Lymphocytes # (Auto) 1.5 K/mm3 (1.2-5.4); Lymphocytes % (Auto) 32.4 % (13.4-35.0); Mean Corpuscular HGB Conc 35 % (30-34); Mean Corpuscular Volume 91 fl (79-97); Monocytes # (Auto) 0.6 K/mm3 (0.0-0.8); Monocytes % (Auto) 12.9 % (0.0-7.3); Platelet Count 573 K/mm3 (140-440); Red Blood Count 4.35 M/mm3 (3.65-5.03); Red Cell Distribution Width 15.2 % (13.2-15.2)
[2021-12-19 14:49] LABS: Alanine Aminotransferase 15 units/L (7-56); Blood Urea Nitrogen 6 mg/dL (7-17); Calcium 9.6 mg/dL (8.4-10.2); Hemolysis Index 0
[2021-12-19 15:26] LABS: BUN/Creatinine Ratio 15
[2021-12-19] MEDS ORDERED: IPRATROPIUM 0.02% NEBU 2.5 ML IH ONE (15:27)
[2021-12-19] MEDS ORDERED: MAGNESIUM SULFATE 2 GM/50 ML BAG IV ONE (15:27)
[2021-12-19] MEDS ORDERED: levoFLOXacin 750 MG TAB PO ONE (15:27)
[2021-12-19] MEDS ORDERED: ALBUTEROL 2.5 MG/3 ML NEBU IH ONE (15:27)
[2021-12-19] MEDS ORDERED: methylPREDNISolone Sod Succinate 125 MG/2 ML INJ IV ONE (15:27)
--- NOTE | 2021-12-19 15:41 | Emergency Department Report ---
ED Shortness of Breath HPI - General Chief Complaint: Dyspnea/Respdistress Stated Complaint: SOB Time Seen by Provider: 12/19/21 15:20 Source: patient, EMS Mode of arrival: Stretcher Limitations: No Limitations - History of Present Illness Initial Comments: 71-year-old female with a history of COPD and currently smoking about a pack of cigarette a day who now presents with shortness of breath associated with productive cough for the last 1 week progressively getting worse. Patient denies any fever or chills. Patient also mentions some chest pressure with no palpitation. No other modifying or associated factors reported. MD Complaint: shortness of breath - Related Data Home Medications Medication Instructions Recorded Confirmed Last Taken Budesonide/Formoterol Fumarate 2 puff PO BID 11/24/21 11/24/21 Unknown [Symbicort 160-4.5 Mcg Inhaler] Insulin Glargine,Hum.rec.anlog 20 unit SQ HS 11/24/21 11/24/21 Unknown [Lantus Solostar] Losartan [Cozaar] 50 mg PO QDAY 11/24/21 11/24/21 Unknown Simvastatin 5 mg PO QDAY 11/24/21 11/24/21 Unknown amLODIPine 10 mg PO DAILY 11/24/21 11/24/21 Unknown Previous Rx's Medication Instructions Recorded Last Taken Type Ketorolac [Toradol] 10 mg PO Q6HR PRN #20 tablet 11/25/21 Unknown Rx Nicotine [Habitrol] 14 mg TD QDAY #30 patch 11/25/21 Unknown Rx Sodium Chloride 1 gm PO BID #6 tablet 11/25/21 Unknown Rx ALBUTEROL NEB's [Proventil 0.083% 2.5 mg IH Q4HRT PRN 5 Days #5 nebu 12/19/21 Unknown Rx NEBS] NS levoFLOXacin [Levaquin TAB] 500 mg PO QDAY 7 Days #7 tablet NS 12/19/21 Unknown Rx predniSONE [Deltasone] 40 mg PO QDAY 5 Days #10 tab NS 12/19/21 Unknown Rx Allergies Allergy/AdvReac Type Severity Reaction Status Date / Time acetaminophen AdvReac Itching Verified 10/07/21 09:25 [From [facility] [facility] Flu/Body] aspirin AdvReac Itching Verified 10/07/21 09:25 [From [facility] [facility] Cold/Cough] chlorpheniramine AdvReac Itching Verified 10/07/21 09:25 [From [facility] [facility] Cold/Cough] dextromethorphan AdvReac Itching Verified 10/07/21 09:25 [From [facility] [facility] Cold/Cough] magnesium salicylate AdvReac Itching Verified 10/07/21 09:25 [From [facility]] phenylpropanolamine AdvReac Itching Verified 10/07/21 09:25 [From [facility] [facility] Cold/Cough] pseudoephedrine AdvReac Itching Verified 10/07/21 09:25 [From [facility] [facility] Flu/Body] ED Review of Systems ROS: Stated complaint: SOB Other details as noted in HPI Comment: All other systems reviewed and negative Respiratory: cough, shortness of breath, SOB with exertion, wheezing ED Past Medical Hx - Past Medical History Hx Hypertension: Yes Hx Diabetes: Yes Hx Arthritis: Yes Hx COPD: Yes Additional medical history: high cholesterol - Surgical History Additional Surgical History: hernia 1974. breast left - Social History Smoking Status: Current Every Day Smoker Substance Use Type: None - Medications Home Medications: Home Medications Medication Instructions Recorded Confirmed Last Taken Type Budesonide/Formoterol Fumarate 2 puff PO BID 11/24/21 11/24/21 Unknown History [Symbicort 160-4.5 Mcg Inhaler] Insulin Glargine,Hum.rec.anlog 20 unit SQ HS 11/24/21 11/24/21 Unknown History [Lantus Solostar] Losartan [Cozaar] 50 mg PO QDAY 11/24/21 11/24/21 Unknown History Simvastatin 5 mg PO QDAY 11/24/21 11/24/21 Unknown History amLODIPine 10 mg PO DAILY 11/24/21 11/24/21 Unknown History Ketorolac [Toradol] 10 mg PO Q6HR PRN #20 tablet 11/25/21 Unknown Rx Nicotine [Habitrol] 14 mg TD QDAY #30 patch 11/25/21 Unknown Rx Sodium Chloride 1 gm PO BID #6 tablet 11/25/21 Unknown Rx ALBUTEROL NEB's [Proventil 0.083% 2.5 mg IH Q4HRT PRN 5 Days #5 nebu 12/19/21 Unknown Rx NEBS] NS levoFLOXacin [Levaquin TAB] 500 mg PO QDAY 7 Days #7 tablet NS 12/19/21 Unknown Rx predniSONE [Deltasone] 40 mg PO QDAY 5 Days #10 tab NS 12/19/21 Unknown Rx ED Physical Exam - General Limitations: No Limitations General appearance: alert, in no apparent distress - Head Head exam: Present: normal inspection - Eye Eye exam: Present: normal appearance Pupils: Present: normal accommodation - ENT ENT exam: Present: normal exam, normal orophraynx, mucous membranes dry - Neck Neck exam: Present: normal inspection, full ROM. Absent: tenderness - Respiratory Respiratory exam: Present: wheezes. Absent: respiratory distress, rales, stridor, accessory muscle use - Cardiovascular Cardiovascular Exam: Present: regular rate, normal rhythm, normal heart sounds - GI/Abdominal GI/Abdominal exam: Present: soft, normal bowel sounds. Absent: distended, tenderness - Extremities Exam Extremities exam: Present: normal inspection, full ROM, normal capillary refill. Absent: tenderness, pedal edema - Back Exam Back exam: Absent: tenderness - Neurological Exam Neurological exam: Present: alert, oriented X3 - Psychiatric Psychiatric exam: Present: normal affect, normal mood - Skin Skin exam: Present: warm, normal color ED Course Vital Signs 12/19/21 12/19/21 12/19/21 11:45 15:21 18:21 Temperature 98.1 F 98.5 F Pulse Rate 94 H 81 Pulse Rate [ 94 H Bilateral] Respiratory 18 18 Rate Respiratory 26 H Rate [Bilateral ] Blood Pressure 133/70 Blood Pressure 121/73 [Left] O2 Sat by Pulse 95 95 Oximetry 12/19/21 18:32 Temperature Pulse Rate 103 H Pulse Rate [ Bilateral] Respiratory 20 Rate Respiratory Rate [Bilateral ] Blood Pressure Blood Pressure 139/61 [Left] O2 Sat by Pulse 93 Oximetry - Consultations Consultation #1: 12/19/21 19:27 I called and spoke with Dr Sky who suggested getting ABG and agreed to admit patient but when he came to evaluate patient she told him that she will rather sign out AMA. I promised the patient an alternative and prescribed her Prednisone, albuterol and Levaquin and warning to quit or cut back on smoking - ED Medical Decision Making - Lab Data Result diagrams: 12/19/21 13:24 12/19/21 13:24 - Medical Decision Making Here with shortness of breath--among differential diagnosis could be but not limited to acute exacerbation of COPD, myocardiac infarction, pulmonary embolism, acute exacerbation of asthma, pneumothorax, pneumonia or Viral or Bacterial Upper/Lower respiratory tract infection or other systemic infection.--To rule out the above will go ahead and order EKG, cardiac enzyme including troponin, BNP, CKMB, chest x-ray, CBC, CMP, UA and or D-dimer. In the meantime we will go ahead and treat with DuoNeb, 125 mg of Solu-Medrol, magnesium sulfate 2 g IV, and will make a case for antibiotics Levaquin consider ing likely cause to be acute COPD exacerbation and continue to monitor the patient. Pt also started on 3L/minutes O2 supplement-- Critical care attestation.: If time is entered above; I have spent that time in minutes in the direct care of this critically ill patient, excluding procedure time. ED Disposition Clinical Impression: COPD with acute exacerbation Disposition: 07 LEFT AGAINST MEDICAL ADVICE Is pt being admited?: No Does the pt Need Aspirin: No Condition: Stable Instructions: Chronic Obstructive Pulmonary Disease (ED) Additional Instructions: Please do not hesitate to call or return to emergency room if you know you are signing out AGAINST MEDICAL ADVICE you will be reevaluated and treated accordingly It is important that you start taking your prescribed antibiotics, prednisone steroid, and albuterol breathing treatment to help your symptoms Call and schedule a follow-up with your primary doctor in the next 2 to 5 days for progress Prescriptions: predniSONE [Deltasone] 40 mg PO QDAY 5 Days #10 tab NS levoFLOXacin [Levaquin TAB] 500 mg PO QDAY 7 Days #7 tablet NS ALBUTEROL NEB's [Proventil 0.083% NEBS] 2.5 mg IH Q4HRT PRN 5 Days #5 nebu NS PRN Reason: Shortness Of Breath Referrals: HANNAH CHRISTIE MD [Referring] - 3-5 Days Time of Disposition: 19:32
[2021-12-19 16:23] LABS: INR 0.84 (0.87-1.13)
[2021-12-19 16:24] LABS: Partial Thromboplastin Time 33.2 Sec. (24.2-36.6)
[2021-12-19 18:33] VITALS: BP 139/61
[2021-12-19] MEDS ORDERED: ACETAMINOPHEN 325 MG TAB PO PRN (19:26)
[2021-12-19] MEDS ORDERED: ALBUTEROL 2.5 MG/3 ML NEBU IH PRN (19:26)
[2021-12-19] MEDS ORDERED: ONDANSETRON 4 MG/2 ML INJ IV PRN (19:26)
[2021-12-19] MEDS ORDERED: MORPHINE 4 MG/1 ML INJ IV PRN (19:26)
[2021-12-19] MEDS ORDERED: oxyCODONE /ACETAMINOPHEN 5-325MG TAB PO PRN (19:26)
[2021-12-19] MEDS ORDERED: KETOROLAC 10 MG TAB PO PRN (19:28)
--- NOTE | 2021-12-19 19:30 | History and Physical Report ---
History of Present Illness Chief complaint: I cannot breathe History of present illness: 71 YO Female with COPD, Nicotine Dependence, HTN, HLD, DM presents to ED for evaluation. Patient reports "I cannot breathe". Patient states that over the past 1 week she has experienced shortness of breath, increased productive cough with yellowish sputum, increased nebulizer use without relief. EMS was notified and upon arrival the patient was found to be in distress and subsequent transported to [facility] for further care and evaluation of the aforementioned symptoms. The patient was seen and evaluated in the emergency department. All lab and imaging studies reviewed. Patient found to have a pulse oximetry of 86% on room air with exertion which is consistent with acute hypoxemic respiratory failure. Patient found to be using accessory muscles to breathe, tripoding, unable to speak in complete sentences. Patient treated with nebulizer therapy as well as IV steroid therapy with improvement in symptoms. Patient denies fever, chills, chest pain, palpitation, productive cough, skin rash, recent contact, or known exposure to COVID-19. Patient admitted to medical floor due to increased risk of worsening symptoms and for medical stabilization. Prior admission on 11/24/2021 reviewed. All medication listed at time of admission has been reconciled. Advanced care planning conducted in ED. Past History Past Medical History: diabetes, hypertension, hyperlipidemia, other (See HPI) Past Surgical History: hernia repair, Other (Breast surgery) Social history: single, smoking. denies: alcohol abuse, prescription drug abuse Family history: diabetes, hypertension Medications and Allergies Allergies Allergy/AdvReac Type Severity Reaction Status Date / Time acetaminophen AdvReac Itching Verified 10/07/21 09:25 [From [facility] [facility] Flu/Body] aspirin AdvReac Itching Verified 10/07/21 09:25 [From [facility] [facility] Cold/Cough] chlorpheniramine AdvReac Itching Verified 10/07/21 09:25 [From [facility] [facility] Cold/Cough] dextromethorphan AdvReac Itching Verified 10/07/21 09:25 [From [facility] [facility] Cold/Cough] magnesium salicylate AdvReac Itching Verified 10/07/21 09:25 [From [facility] Pills] phenylpropanolamine AdvReac Itching Verified 10/07/21 09:25 [From [facility] [facility] Cold/Cough] pseudoephedrine AdvReac Itching Verified 10/07/21 09:25 [From [facility] [facility] Flu/Body] Home Medications Medication Instructions Recorded Confirmed Last Taken Type Budesonide/Formoterol Fumarate 2 puff PO BID 11/24/21 11/24/21 Unknown History [Symbicort 160-4.5 Mcg Inhaler] Insulin Glargine,Hum.rec.anlog 20 unit SQ HS 11/24/21 11/24/21 Unknown History [Lantus Solostar] Losartan [Cozaar] 50 mg PO QDAY 11/24/21 11/24/21 Unknown History Simvastatin 5 mg PO QDAY 11/24/21 11/24/21 Unknown History amLODIPine 10 mg PO DAILY 11/24/21 11/24/21 Unknown History Ketorolac [Toradol] 10 mg PO Q6HR PRN #20 tablet 11/25/21 Unknown Rx Nicotine [Habitrol] 14 mg TD QDAY #30 patch 11/25/21 Unknown Rx Sodium Chloride 1 gm PO BID #6 tablet 11/25/21 Unknown Rx ALBUTEROL NEB's [Proventil 0.083% 2.5 mg IH Q4HRT PRN 5 Days #5 nebu 12/19/21 Unknown Rx NEBS] NS levoFLOXacin [Levaquin TAB] 500 mg PO QDAY 7 Days #7 tablet NS 12/19/21 Unknown Rx predniSONE [Deltasone] 40 mg PO QDAY 5 Days #10 tab NS 12/19/21 Unknown Rx Active Meds: Active Medications Acetaminophen (Acetaminophen 325 Mg Tab) 650 mg PO Q4H PRN PRN Reason: Pain MILD(1-3)/Fever >100.5/ECHOLS Albuterol (Albuterol 2.5 Mg/3 Ml Nebu) 2.5 mg IH Q4HRT PRN PRN Reason: Shortness Of Breath Amlodipine Besylate (Amlodipine 10 Mg Tab) 10 mg PO DAILY [facility] Ketorolac Tromethamine (Ketorolac 10 Mg Tab) 10 mg PO Q6HR PRN PRN Reason: Pain, Moderate (4-6) Stop: 12/24/21 19:27 Losartan Potassium (Losartan 50 Mg Tab) 50 mg PO QDAY ALMA Miscellaneous Medication (Simvastatin [Simvastatin]) 5 mg PO QDAY ALMA Morphine Sulfate (Morphine 4 Mg/1 Ml Inj) 2 mg IV Q24H PRN PRN Reason: Pain , Severe (7-10) Nicotine (Nicotine 14 Mg/24 Hr Patch) 14 mg TD QDAY [facility] Ondansetron HCl (Ondansetron 4 Mg/2 Ml Inj) 4 mg IV Q8H PRN PRN Reason: Nausea And Vomiting Oxycodone/Acetaminophen (Oxycodone /Acetaminophen 5-325mg Tab) 1 tab PO Q16H PRN PRN Reason: Pain, Moderate (4-6) Sodium Chloride (Sodium Chloride 0.9% 10 Ml Flush Syringe) 10 ml IV BID ALMA Sodium Chloride (Sodium Chloride 0.9% 10 Ml Flush Syringe) 10 ml IV PRN PRN PRN Reason: LINE FLUSH Sodium Chloride (Sodium Chloride 1 Gm Tab) 1 gm PO BID [facility] Review of Systems Constitutional: no weight loss, no weight gain, no fever, no chills Ears, nose, mouth and throat: no ear pain, no tinnitis, no nose pain Breasts: no change in shape, no swelling Cardiovascular: no chest pain, no palpitations, no rapid/irregular heart beat Respiratory: cough, cough with sputum, shortness of breath Gastrointestinal: no abdominal pain, no nausea, no vomiting, no diarrhea, no constipation, no hematemesis Genitourinary Female: no pelvic pain, no flank pain, no dysuria, no urinary frequency, no urgency Rectal: no pain, no incontinence, no bleeding Musculoskeletal: no neck stiffness, no neck pain, no arm numbness/tingling, no l ow back pain, no shooting leg pain Integumentary: no rash, no pruritis, no redness, no sores, no wounds Neurological: no head injury, no transient paralysis, no weakness, no parathesias, no numbness, no seizures Psychiatric: no anxiety, no memory loss, no insomnia, no change in appetite, no hallucinations Endocrine: no excessive thirst, no polydipsia, no polyuria, no weight change Hematologic/Lymphatic: no easy bruising Allergic/Immunologic: no allergic rhinitis, no wheezing Exam - Constitutional Vitals: Temp Pulse Resp BP Pulse Ox 98.5 F 103 H 20 139/61 93 12/19/21 15:21 12/19/21 18:32 12/19/21 18:32 12/19/21 18:32 12/19/21 18:32 General appearance: Present: mild distress - EENT Eyes: Present: PERRL ENT: hearing intact, clear oral mucosa - Respiratory Respiratory effort: labored, accessory muscle use Respiratory: bilateral: diminished, rhonchi - Cardiovascular Heart Sounds: Present: S1 & S2. Absent: rub, click - Extremities Extremities: pulses symmetrical, No edema Peripheral Pulses: within normal limits - Abdominal General gastrointestinal: Present: soft, non-tender, non-distended, normal bowel sounds Female genitourinary: Present: normal - Integumentary Integumentary: Present: clear, warm, dry - Musculoskeletal Musculoskeletal: generalized weakness - Psychiatric Psychiatric: appropriate mood/affect, intact judgment & insight - Neurologic Neurologic: CNII-XII intact, moves all extremities HEART Score - HEART Score Troponin: Troponin T < 0.010 ng/mL (0.00-0.029) 12/19/21 15:37 Results - Labs CBC & Chem 7: 12/19/21 13:24 12/19/21 13:24 Labs: Abnormal lab results 12/19/21 12/19/21 12/19/21 Range/Units 13:24 13:24 15:37 MCHC 35 H (30-34) % Plt Count 573 H (140-440) K/mm3 [place] % (Auto) 12.9 H (0.0-7.3) % INR (0.87-1.13) Sodium 124 L (137-145) mmol/L Chloride 86.2 L (98-107) mmol/L BUN 6 L (7-17) mg/dL Creatinine 0.4 L (0.6-1.2) mg/dL Glucose 103 H (65-100) mg/dL Magnesium 1.40 L (1.7-2.3) mg/dL Alkaline Phosphatase 134 H (35-129) units/L 12/19/21 Range/Units 15:37 MCHC (30-34) % Plt Count (140-440) K/mm3 [place] % (Auto) (0.0-7.3) % INR 0.84 L (0.87-1.13) Sodium (137-145) mmol/L Chloride (98-107) mmol/L BUN (7-17) mg/dL Creatinine (0.6-1.2) mg/dL Glucose (65-100) mg/dL Magnesium (1.7-2.3) mg/dL Alkaline Phosphatase (35-129) units/L Assessment and Plan - Patient Problems (1) Acute hypoxemic respiratory failure Status: Acute Plan to address problem: Chest x-ray, supplemental oxygen, pulse oximetry, nebulizer therapy. Arterial blood gas ordered in the emergency department. Patient noncompliant. IV steroid therapy, pulmonary toilet. Noninvasive positive pressure ventilation as clinically indicated. (2) COPD exacerbation Status: Acute Plan to address problem: IV steroid therapy, chest x-ray, supplemental oxygen, pulse oximetry, nebulizer therapy. (3) Nicotine dependence Status: Acute Qualifiers: Nicotine product type: cigarettes Substance use status: in withdrawal Qualified Code(s): F17.213 - Nicotine dependence, cigarettes, with withdrawal Plan to address problem: Smoking cessation counseling, supportive care, behavior change counseling, +15 minutes. (4) Hyperlipidemia Status: Acute Qualifiers: Hyperlipidemia type: mixed hyperlipidemia Qualified Code(s): E78.2 - Mixed hyperlipidemia Plan to address problem: Low-cholesterol diet, statin therapy as clinically indicated (5) Diabetes Status: Acute Plan to address problem: Consistent carbohydrate diet, Accu-Chek, insulin protocol, hypoglycemia protocol. (6) DVT prophylaxis Status: Acute Plan to address problem: SCDs to bilateral lower extremities while in bed (7) Advance care planning Status: Acute Plan to address problem: Disease education data, care plan discussed, diagnoses discussed, prognosis discussed, patient is full code. Patient acknowledges understanding, care plan. Patient reports that she does not want to be in the hospital and may go home. Patient counseled regarding risk of worsening symptoms and even if patient continues noncompliance with medication and therapy. +30 minutes. (8) Preventative health care Status: Acute Plan to address problem: Patient counseled regarding medication compliance. Patient instructed to follow-up with primary care physician for all age and risk factor appropriate screening test. +30 minutes.
[2021-12-19] MEDS ORDERED: methylPREDNISolone Sod Succinate 40 MG/1 ML INJ IV SCH (22:00)
[2021-12-19] MEDS ORDERED: SODIUM CHLORIDE 1 GM TAB PO SCH (22:00)
[2021-12-20] MEDS ORDERED: LOSARTAN 50 MG TAB PO SCH (10:00)
[2021-12-20] MEDS ORDERED: amLODIPine 10 MG TAB PO SCH (10:00)
[2021-12-20] MEDS ORDERED: NICOTINE 14 MG/24 HR PATCH TD SCH (10:00)
[2021-12-20] MEDS ORDERED: PRAVASTATIN 20 MG TAB PO SCH (10:00)
--- NOTE | 2021-12-22 13:49 | Electrocardiograph Report ---
[facility] Test Date: 2021-12-19 Test Time: 14:11:31 Pat Name: MEME KRAUSE Department: Room: A385 Gender: F Residential Sales Associate: ARLEN : 1950 Requested By: ED DOC Order Number: [id number] Reading MD: Christian Culp Measurements Intervals [place] Rate: 88 P: 66 FL: 173 QRS: 84 QRSD: 84 T: 52 QT: 337 QTc: 407 Interpretive Statements Sinus rhythm Low voltage, precordial leads Early repolarization ST abnormality Compared to ECG 11/24/2021 07:37:18 No significant change Electronically Signed On 12-22-2021 13:49:12 EDT by Christian Culp
== END 2021-12-19 21:29 | disposition left against medical advice (07) ==
LOC: ED 11:31 → 3A 19:27 → UNDOADMIN 19:27
DX: J44.1 Chronic obstructive pulmonary disease with (acute) exacerbation (principal); I10 Essential (primary) hypertension; E11.9 Type 2 diabetes mellitus without complications; M19.90 Unspecified osteoarthritis, unspecified site; E78.00 Pure hypercholesterolemia, unspecified; F17.210 Nicotine dependence, cigarettes, uncomplicated; Z88.6 Allergy status to analgesic agent; Z88.8 Allergy status to other drugs, medicaments and biological substances; Z79.899 Other long term (current) drug therapy; Z79.4 Long term (current) use of insulin
CPT/HCPCS: 36415; 71046; 80053; 83735; 84484; 85025; 85379; 85610; 85730; 93005; 94640; 96365; 96375; 99285; J2930; J3475; 94644